=== PATIENT | female | born 1965 | race Two or more races ===

== ENCOUNTER 2024-09-10 10:35 | Day surgery (SDC) | payer OTHER, SELFPAY ==
--- NOTE | 2024-09-07 08:48 | EKG_ITS ---
[facility] Test Date: 2024-09-07 Pat Name: JEFRY CARTER Department: Room: - Gender: Female [employer] 1965 Requested By: Ryan Juarez Order Number: [id number] Reading MD: Ryan Juarez Measurements Intervals [place] Rate: 82 P: 29 HI: 210 QRS: -6 QRSD: 81 T: 10 QT: 360 QTc: 422 Interpretive Statements SINUS RHYTHM WITH FIRST DEGREE AV BLOCK LOW QRS VOLTAGE IN PRECORDIAL LEADS [QRS DEFLECTION < 1.0 mV IN CHEST LEADS] POSSIBLE ANTERIOR MYOCARDIAL INFARCTION , PROBABLY OLD [30 ms Q WAVE IN V3/V4, OR R < 0.2 mV IN V4] Compared to ECG 08/27/2022 08:17:44 First degree AV block now present Myocardial infarct finding still present /store/S0/[id number].pdf
[2024-09-07 09:03] VITALS: BMI 55.4
[2024-09-07 10:53] LABS: Collection Type, Urine Clean Catch
[2024-09-07 11:13] LABS: Basophils # (Auto) 0.0 Thou/mm3 (0.0-0.2); Basophils % (Auto) 1 % (0-2.5); Eosinophils # (Auto) 0.1 Thou/mm3 (0.0-0.5); Eosinophils % (Auto) 1 % (0-10); Hematocrit 36.5 % (36.0-46.0); Hemoglobin 12.5 g/dL (12.0-16.0); Immature Granulocytes Auto 0.03 Thou/mm3 (0.00-0.00); Lymphocytes # (Auto) 2.3 Thou/mm3 (1.0-4.8); Lymphocytes % (Auto) 28 % (10-50); Mean Corpuscular HGB Conc 34.2 g/dl (31.0-37.0); Mean Corpuscular Hemoglobin 30.6 pg (25.0-35.0); Mean Corpuscular Volume 89 fL (80-100); Monocytes # (Auto) 0.5 Thou/mm3 (0.0-0.8); Monocytes % (Auto) 7 % (0-12); Neutrophils # (Auto) 5.2 Thou/mm3 (1.8-7.7); Neutrophils % (Auto) 64 % (37-80); Nucleated Red Blood Cell # 0.00 Thou/mm3 (0.00-0.00); Nucleated Red Blood Cell % 0 /100 WBC (0); Platelet Count 207 Thou/mm3 (140-440); RDW Standard Deviation 41.5 fL (36.4-46.3); Red Blood Count 4.09 Miln/mm3 (4.00-5.20); White Blood Count 8.1 Thou/mm3 (3.6-11.0)
[2024-09-07 11:17] LABS: Bilirubin,Urine Negative (Negative); Blood,Urine Negative (Negative); Clarity,Urine Clear (Clear/Hazy); Color,Urine Lt-Yellow (Lt Yel-Yel); Glucose, Urine Negative (Negative); Hyaline Casts,Urine < 1 /hpf (0-1); Ketones,Urine Negative (Negative); Leukocyte Esterase,Urine Negative (Negative); Nitrite,Urine Negative (Negative); PH,Urine 6.5 (5.0-7.0); Protein,Urine Negative (Neg - Trace); RBC,Urine 2 /hpf (0-3); Specific Gravity,Urine 1.025 (1.001-1.035); Squamous Epithelial Cell,Urine 6 /hpf (0-5); Urobilinogen,Urine Negative mg/dL (0.0-1.0); WBC,Urine 1 /hpf (0-5)
[2024-09-07 11:23] LABS: Partial Thromboplastin Time 28.3 Seconds (22.0-36.0)
[2024-09-07 11:24] LABS: Alanine Aminotransferase 13 U/L (10-49); Albumin, Serum 4.2 gm/dL (3.5-5.0); Albumin/Globulin Ratio 1.4 (1.2-2.2); Alkaline Phosphatase 85 U/L (46-116); Anion Gap 9 (7-16); Aspartate Amino Transferase 12 U/L (0-34); BUN/Creatinine Ratio 27 Ratio (12-20); Bilirubin,Total 0.4 mg/dL (0.3-1.2); Blood Urea Nitrogen 16 mg/dL (9-23); Calcium 9.2 mg/dL (8.3-10.6); Calcium (Corrected) 9.2 mg/dL (8.5-10.1); Carbon Dioxide 29.9 mMol/L (20.0-31.0); Chloride 102 mMol/L (98-107); Creatinine (Component) 0.6 mg/dL (0.6-1.3); Estimated Creatinine Clearance 120.7 mL/min (>60); Globulin 2.9 gm/dL (2.3-3.5); Glucose 145 mg/dL (74-106); Osmolality,Calculated 285 (275-295); Potassium 3.8 mMol/L (3.4-5.1); Sodium 141 mMol/L (136-145); Total Protein 7.1 gm/dL (5.7-8.2); eGFR > 60 See Note
[2024-09-10] VITALS (9 sets, daily range): BP systolic 123–168; BP diastolic 81–107; PULSE 74–96; RESP 12–20; TEMP 36.3–36.7; O2SAT 95–98; BMI 54.3
--- NOTE | 2024-09-10 10:51 | SUR.PREOP ---
Patient expressed gratitude for prayer before their procedure.
--- NOTE | 2024-09-10 16:25 | SUR.PHASEI ---
pt received from OR in recovery bay 8. pt asleep but responds to voice, breathing unlabored on 10 oxymask, nasal airway in place. v/s stable. pt dressing to abd cdi, abd binder in place. report received from Ari CATALAN and Dr. Gonzalez.
--- NOTE | 2024-09-10 16:27 | PD.SUROPNT ---
Date of Procedure 09/10/24 Pre Op Diagnosis Incarcerated ventral incisional hernia Post Op Diagnosis Same. Procedure Repair of incarcerated ventral incisional hernia 8 cm in diameter with implantation of a Ventrio ST round patch. On 09/10/2024 Findings This patient has an infra and supraumbilical incision there is an incarcerated ventral hernia that required reduction omentum was incarcerated with adhesions to the hernia sac lysis of adhesions was necessary. There were no other findings. Procedure Description The patient is interviewed in the preoperative area and the procedure was discussed in detail with the patient including expectation of outcomes. Explanation of the technique and complications. An informed consent was obtained. Anesthesia consent was obtained by the anesthesiologist. The hernia sites were marked on the surface. Patient is brought back to the operating room. The patient is positioned supine on the operating table and general anesthesia is administered in a satisfactory manner. The chest abdomen and thigh genitalia regions are prepped and draped in usual manner. IV antibiotics were given and a timeout procedure was carried out. Intraoperative ultrasound is carried out with 7.5 MHz linear digital ultrasound probe. The hernia defects were identified and marked on the surface to assess the extent of the procedure. Then the local anesthesia quarter percent Marcaine with epinephrine is used. Vertical incision is made through the previous incision. Dissection is carried out in the subcutaneous tissue to the fascia and the 3 different defects are identified. Gentle dissection is carried out and hernia sacs are isolated. The sac is opened and was removed as specimen. There were significantly dense adhesions of the omentum within the hernia sac and surrounding subcutaneous tissue. The contents are reduced. Hemostasis is achieved. Dissection is carried out circumferentially from the peritoneal side to make sure there were no adhesions and bowel attached to the anterior abdominal wall. Lysis of adhesions is carried out on the peritoneal side releasing the omental adhesions circumferentially to about 10 cm around. All the hernias defects were incorporated into one defect. The defect is measured. It is about 15.5 cm in length and 6 cm in the width. The laps and instrument counts are obtained they are correct x2 and then I selected a Ventrio ST round patch to be placed in the underlay position. The patch is round and measures about 11.5 cm in maximum diameter. The patch is secured in the preperitoneal space and attached to the fascia in circumferential manner by interrupted O' Ethibond stitches. Laps and instrument counts were correct ?2. The defect in the fascia is closed over the patch. Patch was previously irrigated with gentamicin solution. Hemostasis is achieved. Operative field is thoroughly irrigated with saline solution and the subcutaneous tissues approximated with 3-0 chromic interrupted suture. The skin is approximated by vipin. Sterile dressing and abdominal binder is applied. Patient tolerated the procedure very well complications none. Patient is transferred to recovery room in a satisfactory condition. Anesthesia GETA Drains None. Implants Ventrio ST round patch Pathology / specimen Other (Hernia sac) Estimated Blood Loss 5 Condition Stable Disposition PACU Surgeon Ryan Juarez MD Surgical Staff Operation Date: 09/10/24 15:45 Case Staff Anesthesiologist: Bryson Gonzalez RNassociate veterinarian: Allie Wellington RN firebreak cutter [place] certified surgical technician
--- NOTE | 2024-09-10 16:49 | SUR.PHASEI ---
pt able to tolerate oral fluids without difficulty swallowing or nausea/vomiting,
--- NOTE | 2024-09-10 17:55 | SUR.PHASEII ---
pt awake and alert, breathing unlabored on room air. v/s stable. pt dressing to abd cdi, abd binder in place. pt able to ambulate to wheelchair with steady gait. d/c instructions given with daughter Aida and Paul in room, all questions answered. pt d/c via wheelchair with all belongings.
--- NOTE | 2024-09-17 13:22 | PD.ANESPROG ---
Documentation for date of: 09/17/24 POST ANESTHESIA NOTE: Patient had GETA for ventral hernia repair on 09/10/24. I just called her number for follow up but no answer. Bryson Gonzalez MD Anesthesia Progress Note Progress Note Most recent Vital Signs: Last Vital Signs Temp 97.4 F 09/10/24 17:40 Pulse 74 09/10/24 17:40 Resp 12 09/10/24 17:40 BP 136/81 H 09/10/24 17:40 Pulse Ox 95 09/10/24 17:40 O2 Flow Rate 6 09/10/24 16:40
== END 2024-09-10 17:58 | disposition home or self-care (01) ==
PROVIDERS: PCP Internal Medicine; Referring Provider Specialist; Visit Provider Specialist
PROC: (CPT 49594; principal; 2024-09-10 15:30)
DX: K43.0 Incisional hernia with obstruction, without gangrene (principal); K66.0 Peritoneal adhesions (postprocedural) (postinfection); Z01.810 Encounter for preprocedural cardiovascular examination
CPT/HCPCS: 49594; 36415; 80053; 81001; 85025; 85730; 93005; A4217; A4649; C1781; J0131; J0694; J1100; J1580; J2405; J2704; J2710; J2765; J3010; J3490; J7030; A9270; J0665; J1596; J1805